=== PATIENT | male | born 1975 | race Caucasian/White ===

== ENCOUNTER 2023-10-09 21:17 | Emergency (ER) | payer MEDICAID ==
[~2023-10-09] VITALS: Ht 175.3 cm; Wt 64.0 kg
[2023-10-09] MEDS ORDERED: LIDOCAINE 1%/EPI 1:100,000 inj. 10 ML multi-dose vial IJ STA (21:48)
[2023-10-09] MEDS ORDERED: TETanus/Pertussis (Acell)/Diphther VAC/PF (Tdap-Adult) 0.5ml syringe IMVAC ONE (21:50)
[2023-10-09] MEDS ORDERED: DOXYCYCLINE 100MG CAPSULE PO STA (22:08)
[2023-10-09] MEDS ORDERED: cephalexin 500mg capsule PO ONE (22:10)
[2023-10-09] MEDS ORDERED: DOXY100C77 PO (22:19)
[2023-10-09] MEDS ORDERED: CEPH250T PO (22:19)
[2023-10-09 22:24] VITALS: BP 130/82; PULSE 86; RESP 18; TEMP 97.8; O2SAT 99
--- NOTE | 2023-10-10 04:28 | NUR ---
I have reviewed and agree with COLOR DIPPER assessment.
== END 2023-10-09 22:26 | disposition home or self-care (01) ==
LOC: ER 21:17
DX: L02.413 Cutaneous abscess of right upper limb (principal); Z88.8 Allergy status to other drugs, medicaments and biological substances; Z79.2 Long term (current) use of antibiotics; Z79.899 Other long term (current) drug therapy
CPT/HCPCS: 10060; 90715; 99283; A6258

== ENCOUNTER 2023-10-11 19:29 | Emergency (ER) | payer MEDICAID ==
[~2023-10-11 19:29] MED LIST: CEPH250T PO; DOXY100C77 PO
== END 2023-10-11 20:22 | disposition left against medical advice (07) ==
LOC: ER 19:29
DX: E11.9 Type 2 diabetes mellitus without complications (principal); Z53.21 Procedure and treatment not carried out due to patient leaving prior to being seen by health care provider